=== PATIENT | female | born 1995 | race Two or more races ===

== ENCOUNTER 2017-04-12 17:19 | Inpatient (IN) | payer BC ==
[~2017-04-12] VITALS: Ht 154.9 cm; Wt 81.8 kg
[2017-04-24] MEDS ORDERED: D5%-LACTATED RINGERS 1,000 ML IV SCH (06:05)
[2017-04-24] MEDS ORDERED: OXYTOCIN 30U/ 0.9% NaCL 500ML 500 ML IV ONE (06:05)
[2017-04-24 06:28] VITALS: BP 126/80
[2017-04-24] MEDS ORDERED: ONDANSETRON 2MG/ML, 2ML IVPush PRN ×2 (06:30→10:00)
[2017-04-24] MEDS ORDERED: TERBUTALINE 1 MG/ML, 1ML IVPush PRN ×2 (06:30)
[2017-04-24] MEDS ORDERED: SODIUM CITRATE/CITRIC ACID 30 ML UDC PO PRN (06:30)
[2017-04-24] MEDS ORDERED: FENTANYL PF 100 MCG/2ML IVPush PRN (06:30)
[2017-04-24] MEDS ORDERED: FENTANYL PF 100 MCG/2ML IV PRN ×2 (06:30→10:00)
[2017-04-24] MEDS ORDERED: CALCIUM CARBONATE 500 MG TAB.CHEW PO PRN (06:30)
[2017-04-24] MEDS ORDERED: METOCLOPRAMIDE 5 MG/ML, 2ML IVPush PRN (06:30)
[2017-04-24] MEDS ORDERED: PLEASE ENTER ALLERGIES MC SCH ×2 (06:30)
[2017-04-24 06:40] LABS: HEMATOCRIT 35.5 % (34.6-47.8); HEMOGLOBIN 11.9 g/dL (11.7-16.4); WHITE BLOOD COUNT 7.8 x10^3/uL (3.4-10)
[2017-04-24] MEDS: LACTATED RINGERS 1,000 ML IV SCH ×6 (06:41→21:03)
[2017-04-24] MEDS ORDERED: TERBUTALINE 1 MG/ML, 1ML ONE (08:39)
[2017-04-24] MEDS ORDERED: FENTANYL PF 100 MCG/2ML ONE ×2 (09:45→10:07)
[2017-04-24] MEDS ORDERED: SODIUM CITRATE/CITRIC ACID 30 ML UDC ONE (09:45)
[2017-04-24] MEDS ORDERED: METOCLOPRAMIDE 5 MG/ML, 2ML ONE ×2 (09:45→10:11)
[2017-04-24] MEDS ORDERED: LACTATED RINGERS 1,000 ML IV SCH ×2 (09:54→10:00)
[2017-04-24] MEDS ORDERED: OXYTOCIN 30U/ 0.9% NaCL 500ML 500 ML IV SCH (09:54)
[2017-04-24] MEDS ORDERED: OXYTOCIN 30U/ 0.9% NaCL 500ML 500 ML ONE (09:58)
[2017-04-24] MEDS ORDERED: NEWBORN KIT ONE (09:59)
[2017-04-24] MEDS ORDERED: SODIUM CITRATE/CITRIC ACID 30 ML UDC PO ONE (10:00)
[2017-04-24] MEDS ORDERED: OXYcodone 5 MG/5 ML ORAL.SOL UDC PO PRN (10:00)
[2017-04-24] MEDS ORDERED: EPHEDRINE 50 MG/ML, 1ML IVPush PRN (10:00)
[2017-04-24] MEDS ORDERED: MEPERIDINE/PF 25MG/0.5ML IVPush PRN (10:00)
[2017-04-24] MEDS ORDERED: LACTATED RINGERS 1,000 ML IVBOLUS ONE (10:00)
[2017-04-24] MEDS ORDERED: morphine SULFATE 10 MG/ML, 1ML IV PRN (10:00)
[2017-04-24] MEDS ORDERED: MIDAZOLAM 1 MG/ML, 2ML ONE (10:07)
[2017-04-24] MEDS ORDERED: CITRIC ACID/SODIUM CITRATE ORAL SOL ONE (10:11)
[2017-04-24] MEDS ORDERED: CEFAZOLIN 1,000 MG ONE (10:11)
[2017-04-24] MEDS ORDERED: OXYTOCIN 10 UNITS/ML, 1ML ONE (10:11)
[2017-04-24] MEDS ORDERED: KETOROLAC 30 MG/1 ML ONE (10:11)
[2017-04-24] MEDS ORDERED: LIDOCAINE 1%, 20ML ONE (10:11)
[2017-04-24] MEDS: OXYTOCIN 30U/ 0.9% NaCL 500ML 500 ML IV SCH ×2 (11:03→21:03)
[2017-04-24] MEDS ORDERED: morphine SULFATE 10 MG/ML, 1ML IVPush PRN (11:30)
[2017-04-24] MEDS ORDERED: ONDANSETRON 2MG/ML, 2ML IV PRN (11:30)
[2017-04-24] MEDS ORDERED: MISOPROSTOL 200 MCG TABLET PR PRN (11:30)
[2017-04-24] MEDS ORDERED: OXYcodone 5 MG/5 ML ORAL.SOL UDC ONE (11:48)
[2017-04-24 13:30] VITALS: BP 128/80
[2017-04-24] MEDS: OXYcodone IR 5MG TABLET PO PRN ×2 (17:03→23:33)
[2017-04-24] MEDS: KETOROLAC 30 MG/1 ML IV PRN ×2 (17:03→23:17)
[2017-04-24 17:30] VITALS: BP 129/86
[2017-04-24 19:01] LABS: HEMOGLOBIN 11.9 g/dL (11.7-16.4); WHITE BLOOD COUNT 12.9 x10^3/uL (3.4-10)
[2017-04-24 20:54] VITALS: BP 128/82
[2017-04-25 00:30] VITALS: BP 118/77
[2017-04-25] MEDS: LACTATED RINGERS 1,000 ML IV SCH ×5 (03:03→19:03)
[2017-04-25] MEDS: KETOROLAC 30 MG/1 ML IV PRN (05:30)
[2017-04-25] MEDS: OXYcodone IR 5MG TABLET PO PRN ×2 (05:30→12:56)
[2017-04-25 05:40] VITALS: BP 118/80
[2017-04-25] MEDS: OXYTOCIN 30U/ 0.9% NaCL 500ML 500 ML IV SCH ×2 (07:03→17:03)
[2017-04-25 10:00] VITALS: BP 122/79
[2017-04-25] MEDS: PRENATAL VIT/IRON/FA 1 EACH TABLET PO SCH (10:09)
[2017-04-25] MEDS: IBUPROFEN 600 MG TABLET PO PRN ×2 (12:56→19:26)
[2017-04-25 13:00] VITALS: BP 122/75
[2017-04-25] MEDS: OXYcodone/APAP 5/325MG TABLET PO PRN (19:26)
[2017-04-25 19:45] VITALS: BP 131/85
[2017-04-26] MEDS: OXYcodone/APAP 5/325MG TABLET PO PRN ×4 (01:57→22:10)
[2017-04-26] MEDS: IBUPROFEN 600 MG TABLET PO PRN ×4 (01:57→22:10)
[2017-04-26] MEDS: LACTATED RINGERS 1,000 ML IV SCH ×2 (03:03)
[2017-04-26] MEDS: OXYTOCIN 30U/ 0.9% NaCL 500ML 500 ML IV SCH (03:03)
[2017-04-26 07:05] VITALS: BP 123/74
[2017-04-26] MEDS: PRENATAL VIT/IRON/FA 1 EACH TABLET PO SCH (09:39)
[2017-04-26 19:49] VITALS: BP 118/71
[2017-04-27] MEDS: OXYcodone/APAP 5/325MG TABLET PO PRN ×3 (04:26→19:49)
[2017-04-27] MEDS: IBUPROFEN 600 MG TABLET PO PRN ×3 (04:27→19:49)
[2017-04-27 08:00] VITALS: BP 131/91
[2017-04-27] MEDS: PRENATAL VIT/IRON/FA 1 EACH TABLET PO SCH (10:04)
[2017-04-27 20:55] VITALS: BP 134/85
[2017-04-28] MEDS: IBUPROFEN 600 MG TABLET PO PRN (02:43)
[2017-04-28] MEDS: OXYcodone/APAP 5/325MG TABLET PO PRN (02:44)
[2017-04-28 07:38] VITALS: BP 118/82
[2017-04-28] MEDS: PRENATAL VIT/IRON/FA 1 EACH TABLET PO SCH (08:22)
[2017-04-28] MEDS ORDERED: IBUP-1222 PO (09:35)
[2017-04-28] MEDS ORDERED: OXYC-302 PO (09:35)
== END 2017-04-28 13:15 | disposition home or self-care (01) | DRG 766 ==
LOC: LDIP 04-24 06:00 → 2NW 04-24 13:15
PROVIDERS: ADMIT Obstetrics & Gynecology; ATTEND Obstetrics & Gynecology
PROC: 10D00Z1 Extraction of Products of Conception, Low, Open Approach (ICD-10-PCS; principal; 2017-04-24)
DX: O48.0 Post-term pregnancy (principal); O77.0 Labor and delivery complicated by meconium in amniotic fluid; O76 Abnormality in fetal heart rate and rhythm complicating labor and delivery; Z37.0 Single live birth; Z3A.42 42 weeks gestation of pregnancy
CPT/HCPCS: 36415; 82803; 85025; 86850; 86900; 88307; J0690; J1885; J3010; J3490; J2590; J2765; J7120; J7121